=== PATIENT | female | born 1965 | race Caucasian/White ===

== ENCOUNTER → 2017-01-15 | Outpatient (CLI) | payer BC ==
[~2017-01-15] MED LIST: ASCO-285 PO; CALC-587 PO; CITA-50 PO; CYAN500T37 PO; ENOX100D2 SQ; FIBE1TAB3 PO; FISH1CAP29 PO; FLUT1DIS31 IH; MONT10TA15 PO; MULT-806 PO; OMEP-29 PO; POTA99TA16 PO; [UNRECOGNIZED DRUG - CODE] PO; [UNRECOGNIZED DRUG - CODE] PO
[2017-01-15 14:49] LABS: BASOPHILS % (AUTO) 0.4 % (0-2); EOSINOPHILS # (AUTO) 0.2 T/MM3 (0-0.5); EOSINOPHILS % (AUTO) 2.8 % (0-4); HCT - HEMATOCRIT 40.8 % (36-46); HGB - HEMOGLOBIN 13.2 GM/DL (12-16); IMMATURE GRANULOCYTE # (AUTO) 0.03 T/MM3 (0.00-0.03); IMMATURE GRANULOCYTE % (AUTO) 0.4 % (0.0-0.5); LYMPHOCYTES # (AUTO) 2.4 T/MM3 (1-4.8); LYMPHOCYTES % (AUTO) 30.2 % (23-45); MEAN CORPUSCULAR HGB 29.1 UUG (26-34); MEAN CORPUSCULAR HGB CONC(MCHC 32.4 GM/DL (31-37); MEAN CORPUSCULAR VOLUME 90.1 UM3 (80-100); MEAN PLATELET VOLUME 9.5 UM3 (9.4-12.4); MONOCYTES # (AUTO) 0.5 T/MM3 (0-0.8); MONOCYTES % (AUTO) 6.1 % (0-9.0); NEUTROPHILS #(AUTO)-ABSOLUTE 4.9 T/MM3 (1.8-7.7); NEUTROPHILS % (AUTO) 60.1 % (33-66); RED BLOOD COUNT 4.53 M/MM3 (4.00-5.20); WBC - WHITE BLOOD COUNT 8.1 T/MM3 (4.5-11.0)
[2017-01-15 19:17] LABS: ALBUMIN 4.4 G/DL (3.5-5.0); ALBUMIN/GLOBULIN RATIO 1.5 RATIO (1.1-2.2); ALKALINE PHOSPHATASE 74 U/L (38-126); ALT (SGPT) 37 U/L (9-52); ANION GAP 18 MEQ/L (5-15); AST (SGOT) 27 U/L (14-36); BUN/CREATININE RATIO 11 RATIO (6-26); CALCIUM 9.5 MG/DL (8.4-10.2); CHLORIDE 108 MEQ/L (98-107); CO2 - CARBON DIOXIDE 23 MEQ/L (22-30); CREATININE 0.9 MG/DL (0.7-1.2); GLOMERULAR FILTRATION RATE 66; GLUCOSE 118 MG/DL (65-110); LDH 495 U/L (313-618); POTASSIUM 4.1 MEQ/L (3.6-5); SODIUM 149 MEQ/L (134-144); TOTAL PROTEIN 7.4 G/DL (6.3-8.2)
[2017-01-15 19:46] LABS: THYROID STIM HORMONE-TSH 1.05 MIU/L (0.47-4.68)
== END ==
LOC: LAB 14:34
PROVIDERS: ATTEND Internal Medicine Medical Oncology
DX: R53.83 Other fatigue (principal); Z85.72 Personal history of non-Hodgkin lymphomas
CPT/HCPCS: 36415; 80053; 83615; 84443; 85025

== ENCOUNTER → 2017-01-22 | Outpatient (CLI) | payer BC ==
[~2017-01-22] MED LIST changes: +IOHEXOL 300 MG/ML 50ml INJECTION ONE; +IOHEXOL 300 MG/ML 75ml INJECTION ONE; +NORMAL SALINE 100 ML ONE; +SALINE FLUSH 10ml SYRINGE ONE
--- NOTE | 2017-01-22 10:11 | DI ---
Indication: ITS.REASON: Z92.3 Personal history of irradiation PROCEDURE: CT NECK and chest W/CONTRAST: Encounter: Subsequent Comparison: CT neck and chest dated January 24, 2016 and July 26, 2015 Technique: Axial CT images were performed through the neck and chest with intravenous contrast. Coronal and sagittal two-dimensional reformats Automated Exposure Control and Iterative Reconstruction dose reducing techniques were utilized. Contrast: Omnipaque 300 120 mL Findings: Neck: The thyroid gland is unremarkable. The submandibular glands are normal and symmetric. Right parotid gland appears surgically absent or very diminutive. No adenopathy or mass seen in the neck. No mucosal based mass lesions appreciated. Skull base is unremarkable. Chest: Small area of trapping noted peripherally in the right upper lobe, a chronic finding. No new and solid aeration, pleural effusion or pneumothorax. No new pulmonary nodules or masses. The central airways are patent. Calcified granuloma in the left lower lobe. No axillary or mediastinal adenopathy. The heart size is normal. No pericardial effusion. Small hiatal hernia. Attenuation artifact due to patient body habitus. The upper abdomen shows no acute findings. Bone windows show degenerative change at the right sternoclavicular joint with subchondral sclerosis and cyst formation. This is progressed from the most recent comparison study and significantly worsened from 2015. There is mild degenerative change in the mid thoracic spine. No worrisome lytic or blastic osseous lesions seen. 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 No evidence of acute disease seen in the neck or chest. .
== END ==
LOC: IMA 09:03
PROVIDERS: ATTEND Internal Medicine Medical Oncology
DX: Z92.3 Personal history of irradiation (principal); M19.011 Primary osteoarthritis, right shoulder
CPT/HCPCS: 70491; 71260; J7050; Q9967